=== PATIENT | female | born 1990 ===

== ENCOUNTER 2023-08-29 13:08 | Inpatient (IN) | payer OTHER ==
[~2023-08-29] VITALS: Ht 152.4 cm; Wt 98.4 kg
[2023-08-29] MEDS ORDERED: RINGERS SOLUTION,LACTATED 1,000 ML IV SCH (15:00)
[2023-08-29 15:10] LABS: INR 0.94; PARTIAL THROMBOPLASTIN TIME 22.4 SECONDS (22.0-34.0); PROTHROMBIN TIME 9.9 SECONDS (9.0-11.5)
[2023-08-29 15:14] LABS: BILIRUBIN TOTAL 0.3 mg/dL (0.3-1.2); CALCIUM 9.2 mg/dL (8.5-10.1); CREATININE SERUM 0.49 mg/dL (0.55-1.02); GFR 147.3; GLOBULINA 3.1 G/DL (2.4-3.5); POTASSIUM 3.97 mEq/L (3.5-5.1); TOTAL PROTEIN 6.1 gm/dL (6.4-8.2)
[2023-08-29 15:16] LABS: HEMATOCRIT 35.2 % (36.0-45.00); HEMOGLOBIN 11.8 g/dL (12.0-15.00); MEAN CORPUSCULAR HEMOGLOBIN 28.4 pg (27.00-32.0); MEAN CORPUSCULAR HGB CONC 33.4 g/dl (32.0-36.0); PLATELET COUNT 210 K/uL (150-450); RED BLOOD COUNT 4.14 M/uL (4.00-6.00); RED CELL DISTRIBUTION WIDTH 14.7 % (11.5-14.5)
[2023-08-29 15:31] LABS: PH,URINE 7.5 (5.0-8.0); URINE APPEARANCE Clear; URINE BILIRRUBIN Negative (NEGATIVE); URINE BLOOD Negative; URINE COLOR Yellow; URINE GLUCOSE Negative (NEGATIVE); URINE LEUKOCYTE Negative; URINE NITRATE Negative; URINE PROTEIN Negative (NEGATIVE)
[2023-08-29 15:35] LABS: URINE EPITHELIAL CELLS 5.6 uL (0.0-38.8); URINE WBC 2.1 uL (0.0-23.2)
[2023-08-29 15:37] LABS: URINE RBC 0.6 uL (0.0-20.8)
[2023-08-30] MEDS ORDERED: PNV,CALCIUM 72/IRON/FOLIC ACID 1 TAB TABLET PO SCH (09:00)
[2023-08-30 17:26] LABS: URINE PROT QUANT 24HR 6.2 MG/DL
[2023-08-30 17:40] LABS: URINE PROT QUANT 24 HR 213.9 MG/24HR (42-225)
== END 2023-08-31 14:56 | disposition home or self-care (01) | DRG 833 ==
LOC: LDR 13:08 → OB/GYN 08-30 10:26
PROVIDERS: ADMIT Obstetrics & Gynecology; ATTEND Obstetrics & Gynecology
PROC: 4A1HXCZ Monitoring of Products of Conception, Cardiac Rate, External Approach (ICD-10-PCS; principal; 2023-08-29)
DX: O13.2 Gestational [pregnancy-induced] hypertension without significant proteinuria, second trimester (principal); Z3A.19 19 weeks gestation of pregnancy; Z20.822 Contact with and (suspected) exposure to COVID-19

== ENCOUNTER → 2023-09-30 15:25 | Outpatient (CLI) | payer OTHER | END | disposition home or self-care (01) | LOC: PRENATAL 15:25 | PROVIDERS: ATTEND Obstetrics & Gynecology Maternal & Fetal Medicine | DX: O35.9XX0 Maternal care for (suspected) fetal abnormality and damage, unspecified, not applicable or unspecified (principal); O35.3XX0 Maternal care for (suspected) damage to fetus from viral disease in mother, not applicable or unspecified; O44.02 Complete placenta previa NOS or without hemorrhage, second trimester; O34.12 Maternal care for benign tumor of corpus uteri, second trimester; Z3A.23 23 weeks gestation of pregnancy ==

== ENCOUNTER → 2023-11-26 13:54 | Outpatient (CLI) | payer OTHER | END | disposition home or self-care (01) | LOC: PRENATAL 13:54 | PROVIDERS: ATTEND Obstetrics & Gynecology Maternal & Fetal Medicine | DX: O26.849 Uterine size-date discrepancy, unspecified trimester (principal); O36.8199 Decreased fetal movements, unspecified trimester, other fetus; O34.10 Maternal care for benign tumor of corpus uteri, unspecified trimester; Z3A.32 32 weeks gestation of pregnancy ==

== ENCOUNTER 2024-01-12 18:04 | Inpatient (IN) | payer OTHER ==
[~2024-01-12] VITALS: Ht 162.6 cm; Wt 104.3 kg
[2024-01-12] MEDS ORDERED: RINGERS SOLUTION,LACTATED 1,000 ML IV SCH (18:15)
[2024-01-12 18:43] VITALS: BP 106/69
[2024-01-12 20:31] LABS: HEMATOCRIT 37.6 % (36.0-45.00); HEMOGLOBIN 11.9 g/dL (12.0-15.00); MEAN CORPUSCULAR HGB CONC 31.7 g/dl (32.0-36.0); PH,URINE 6.5 (5.0-8.0); PLATELET COUNT 244 K/uL (150-450); RED BLOOD COUNT 4.58 M/uL (4.00-6.00); RED CELL DISTRIBUTION WIDTH 15.7 % (11.5-14.5); URINE APPEARANCE Clear; URINE BILIRRUBIN Negative (NEGATIVE); URINE BLOOD Negative; URINE COLOR Dark Yellow; URINE GLUCOSE Negative (NEGATIVE); URINE KETONE Trace (NEGATIVE); URINE LEUKOCYTE Negative; URINE NITRATE Negative; URINE PROTEIN Trace (NEGATIVE)
[2024-01-12 20:40] LABS: URINE BACTERIA 214.1 uL (0.0-1933); URINE RBC 3.9 uL (0.0-20.8); URINE WBC 13.9 uL (0.0-23.2)
[2024-01-12 20:44] LABS: INR < 0.93; PARTIAL THROMBOPLASTIN TIME 26.5 SECONDS (22.0-34.0); PROTHROMBIN TIME 10.2 SECONDS (9.0-11.5)
[2024-01-12 20:46] LABS: URINE CAST 0.15 uL (0.0-1.40)
[2024-01-12 20:49] LABS: BILIRUBIN TOTAL 0.46 mg/dL (0.3-1.2); CALCIUM 9.1 mg/dL (8.5-10.1); CREATININE SERUM 0.76 mg/dL (0.55-1.02); GFR 88.19; GLOBULINA 3.4 G/DL (2.4-3.5); POTASSIUM 4.35 mEq/L (3.5-5.1); TOTAL PROTEIN 6.4 gm/dL (6.4-8.2)
[2024-01-12] MEDS ORDERED: PRENATAL TABLE1 EAC1 PO (20:56)
[2024-01-12 23:17] VITALS: BP 111/69
[2024-01-13 03:41] VITALS: BP 108/66
[2024-01-13 03:46] VITALS: BP 111/77
[2024-01-13 06:09] VITALS: BP 106/70; O2SAT 99
[2024-01-13 10:50] VITALS: BP 127/86
[2024-01-13 16:06] VITALS: BP 140/80
[2024-01-14] VITALS: BP 117/76
[2024-01-14 08:39] VITALS: BP 135/75
[2024-01-14 15:23] VITALS: BP 129/78
[2024-01-14 20:03] VITALS: BP 106/64
[2024-01-14 23:22] VITALS: BP 131/76
[2024-01-15] VITALS (11 sets, daily range): BP systolic 119–145; BP diastolic 61–83
[2024-01-15] MEDS ORDERED: OXYTOCIN 500 ML IV SCH (07:45)
[2024-01-15] MEDS ORDERED: PROMETHAZINE HCL 50 MG/ML AMPUL IV ONE (11:15)
[2024-01-15] MEDS ORDERED: MEPERIDINE HCL/PF 50 MG/ML VIAL IV ONE (11:15)
[2024-01-15] MEDS ORDERED: CARBOPROST TROMETHAMINE 250 MCG/ML AMPUL IM STA (20:49)
[2024-01-15] MEDS ORDERED: METHYLERGONOVINE MALEATE 0.2 MG/ML AMPUL IV STA (20:49)
[2024-01-15] MEDS ORDERED: ACETAMINOPHEN 500 MG GEL..CAP PO PRN (21:00)
[2024-01-15] MEDS ORDERED: OXYTOCIN 1,000 ML IV SCH (21:00)
[2024-01-15] MEDS ORDERED: IBUprofen 600 MG TABLET PO PRN (21:00)
[2024-01-15] MEDS ORDERED: MISOPROSTOL 100 MCG TABLET RECTAL ONE (21:00)
[2024-01-15] MEDS ORDERED: CHLORHEXIDINE GLUCONATE 120 ML BOTTLE TP SCH (21:00)
[2024-01-15] MEDS ORDERED: BENZOCAINE/MENTHOL 90 ML BOTTLE TOP SCH (22:00)
[2024-01-16] MEDS ORDERED: METHYLERGONOVINE MALEATE 0.2 MG TABLET PO SCH
[2024-01-16] MEDS ORDERED: LIDOCAINE HCL 1% 10ML VIAL PERCUT ONE (04:00)
[2024-01-16] MEDS ORDERED: LIDOCAINE HCL 1% 10ML VIAL IJ ONE (04:00)
[2024-01-16 04:06] VITALS: BP 138/78
[2024-01-16 07:42] LABS: HEMATOCRIT 36.2 % (36.0-45.00); HEMOGLOBIN 11.5 g/dL (12.0-15.00); MEAN CELL VOLUME 82.7 fL (80.00-100.00); MEAN CORPUSCULAR HEMOGLOBIN 26.3 pg (27.00-32.0); MEAN CORPUSCULAR HGB CONC 31.9 g/dl (32.0-36.0); PLATELET COUNT 246 K/uL (150-450); RED BLOOD COUNT 4.38 M/uL (4.00-6.00); RED CELL DISTRIBUTION WIDTH 15.9 % (11.5-14.5)
[2024-01-16 07:44] VITALS: BP 119/75
[2024-01-16] MEDS ORDERED: HYDROCORTISONE 2.5% 20 GM TUBE RECTAL SCH (17:00)
[2024-01-16 17:17] VITALS: BP 125/82
[2024-01-17] VITALS: BP 114/78
[2024-01-17] MEDS ORDERED: NAPR500T14 PO (11:53)
[2024-01-17 13:50] VITALS: BP 140/90
== END 2024-01-17 15:02 | disposition home or self-care (01) | DRG 807 ==
LOC: LDR 18:04 → OB/GYN 01-13 08:59
PROVIDERS: Obstetrics & Gynecology; ADMIT Obstetrics & Gynecology; ATTEND Obstetrics & Gynecology
PROC: 4A1HXCZ Monitoring of Products of Conception, Cardiac Rate, External Approach (ICD-10-PCS; 2024-01-12)
PROC: 10E0XZZ Delivery of Products of Conception, External Approach (ICD-10-PCS; principal; 2024-01-15)
PROC: 0KQM0ZZ Repair Perineum Muscle, Open Approach (ICD-10-PCS; 2024-01-15)
DX: O70.1 Second degree perineal laceration during delivery (principal); Z37.0 Single live birth; Z3A.38 38 weeks gestation of pregnancy; Z20.822 Contact with and (suspected) exposure to COVID-19